=== PATIENT | male | born 1995 | race Caucasian/White ===

== ENCOUNTER 2017-05-08 16:03 | Emergency (ER) | payer SELFPAY ==
[~2017-05-08] VITALS: Ht 170.2 cm; Wt 60.0 kg
[2017-05-08 16:06] VITALS: BP 128/78
== END 2017-05-08 16:23 | disposition left against medical advice (07) ==
LOC: ER 16:03
DX: R45.851 Suicidal ideations (principal); Z53.21 Procedure and treatment not carried out due to patient leaving prior to being seen by health care provider